=== PATIENT | female | born 1930 | race Caucasian/White ===

== ENCOUNTER 2017-08-28 10:53 | Inpatient (IN) | payer OTHER, MEDICARE ==
--- NOTE | 2017-08-28 11:02 | EDPHY ---
H & P Time Seen by Provider: 08/28/17 11:02 HPI/ROS: CHIEF COMPLAINT: Generalized weakness HISTORY OF PRESENT ILLNESS: Patient was seen to last be normal at 8 but breakfast. She was found by her son with lying in her room undressed on her back, and arrives the Emergency Department 11:00 a.m. with generalized weakness. She complains only of pain in her left hip. She is very hard of hearing and only has her left hearing aid in which makes further history and review of systems difficult. She was unable to walk or stand per her son. She is able to move all 4 extremities. She denies neck or back pain or headache. REVIEW OF SYSTEMS: Eye: no change in vision ENT: no sore throat Cardiac: No chest pain, unknown if event today was syncope. Pulmonary: no cough or SOB Abdomen: no vomiting, diarrhea, abdominal pain Musculoskeletal: no back pain or neck pain Skin: no rash Neuro: no headache Constitutional: no fever : no urinary symptoms A comprehensive 10 point review of systems is otherwise negative aside from elements mentioned in the history of present illness. PAST MEDICAL HISTORY: Hypothyroid Social history: No alcohol or tobacco, son present with her. General Appearance: Alert and conversant, cooperative. Eyes: No scleral icterus. ENT, Mouth: Normal mucous membranes. Respiratory: Normal respiratory effort, breath sounds equal, lungs are clear to auscultation. Cardiovascular: Regular rate and rhythm. Gastrointestinal: Abdomen is soft and non tender. Neurological: Alert, follows commands. Very hard of hearing. She will answer questions and when she does, her speech is fluent. Face symmetric, normal movement and sensation in all extremities. Skin: Warm and dry, no rashes. Musculoskeletal: No spinal tenderness. Left hip tenderness to rotation and axial loading. Psychiatric: Not agitated. Emergency Department course/MDM: Head CT, left hip x-ray, labs and EKG. Spine cleared clinically. Patient does not have focal findings to suggest that stroke is likely. 1200: X-ray personally interpreted as displaced femoral neck fracture on the left, discussed with the son. Plan for admission and orthopedic consultation. Constitutional: Initial Vital Signs Temperature (C) 36.3 C 08/28/17 11:02 Heart Rate 67 08/28/17 11:02 Respiratory Rate 18 08/28/17 11:02 Blood Pressure 146/101 H 08/28/17 11:02 O2 Sat (%) 95 08/28/17 11:02 O2 Delivery Mode Room Air Allergies/Adverse Reactions: No Known Allergies Allergy (Unverified 08/28/17 11:02) Home Medications: Medication Instructions Recorded Herbals/Supplements -Info Only 1 ea PO DAILY 08/28/17 Levothyroxine [Synthroid 50 mcg 50 mcg PO DAILY06 08/28/17 (*)] Medical Decision Making - Diagnostics EKG Interpretation: 12-lead EKG interpreted by me; official reading is in trace master. My interpretation is sinus rhythm rate 71 with APC and left anterior fascicular block. Imaging Results: Imaging Impressions Chest X-Ray 08/28/17 11:02 Impression: Mild CHF with interstitial pulmonary edema. Head CT 08/28/17 11:02 Impression: 1. Moderate atrophy. 2. No acute hemorrhage, hydrocephalus, or mass effect. 3. Cerebrovascular atherosclerosis. 4. No definite acute infarct. 5. Moderate microvascular ischemic gliosis. 6. Old bilateral basal ganglia lacunar infarcts. 7.No epidural or subdural hematoma. Findings and recommendations discussed with Emergency Department physician, ANNETTE ANROLD at 1145 hour, 08/28/2017. Final report concurs with initial preliminary interpretation. Hip X-Ray 08/28/17 11:02 Impression: Displaced left femoral neck fracture as above. Underlying degenerative change in both hips. Knee X-Ray 08/28/17 11:56 Impression: Negative. No acute fracture or effusion. Differential Diagnosis: Differential for weakness considered including but not limited to hip fracture or extremity fracture, spinal cord problem, metabolic, stroke. Consult/Admit Bed Type: [place] [address], [facility] [facility] [place] [facility] - Data Points Laboratory Results: Laboratory Results 08/28/17 11:00 08/28/17 11:00 08/28/17 08/28/17 11:00 11:00 WBC 5.21 10^3/uL 10^3/uL (3.80-9.50) RBC 4.11 10^6/uL L 10^6/uL (4.18-5.33) Hgb 13.5 g/dL g/dL (12.6-16.3) Hct 39.1 % % (38.0-47.0) MCV 95.1 fL fL (81.5-99.8) MCH 32.8 pg pg (27.9-34.1) MCHC 34.5 g/dL g/dL (32.4-36.7) RDW 14.0 % % (11.5-15.2) Plt Count 200 10^3/uL 10^3/uL (150-400) MPV 9.8 fL fL (8.7-11.7) Neut % (Auto) 75.9 % H % (39.3-74.2) Lymph % (Auto) 11.3 % L % (15.0-45.0) [place] % (Auto) 10.6 % % (4.5-13.0) Eos % (Auto) 0.8 % % (0.6-7.6) Baso % (Auto) 0.6 % % (0.3-1.7) Nucleat RBC Rel Count 0.0 % % (0.0-0.2) Absolute Neuts (auto) 3.96 10^3/uL 10^3/uL (1.70-6.50) Absolute Lymphs (auto) 0.59 10^3/uL L 10^3/uL (1.00-3.00) Absolute Monos (auto) 0.55 10^3/uL 10^3/uL (0.30-0.80) Absolute Eos (auto) 0.04 10^3/uL 10^3/uL (0.03-0.40) Absolute Basos (auto) 0.03 10^3/uL 10^3/uL (0.02-0.10) Absolute Nucleated RBC 0.00 10^3/uL 10^3/uL (0-0.01) Immature Gran % 0.8 % % (0.0-1.1) Immature Gran # 0.04 10^3/uL 10^3/uL (0.00-0.10) Sodium 141 mEq/L mEq/L (134-144) Potassium 4.2 mEq/L mEq/L (3.5-5.2) Chloride 101 mEq/L mEq/L (97-110) Carbon Dioxide 31 mEq/l mEq/l (22-31) Anion Gap 9 mEq/L mEq/L (8-16) BUN 16 mg/dL mg/dL (7-23) Creatinine 0.7 mg/dL mg/dL (0.6-1.0) Estimated GFR > 60 Glucose 117 mg/dL H mg/dL (70-100) Calcium 9.6 mg/dL mg/dL (8.5-10.4) Troponin I 0.022 ng/mL ng/mL (0.000-0.034) Medications Given: Morphine Sulfate (Morphine) 1 - 2 mg IVP Q1HR PRN PRN Reason: Pain, Severe Unable to Take PO Stop: 09/07/17 13:00 Last Admin: 08/28/17 13:35 Dose: 2 mg Departure - Departure Disposition: [facility] Inpatient Acute Clinical Impression: Displaced fracture of left femoral neck Condition: Good
[2017-08-28 11:07] LABS: PLATELET COUNT 200 10^3/uL (150-400)
--- NOTE | 2017-08-28 12:06 | CPEKG ---
Heart Rate: 71 RR Interval: 845 P-R Interval: 156 QRSD Interval: 86 QT Interval: 412 QTC Interval: 448 P [place]: 78 QRS [place]: -54 T Wave [place]: 43 EKG Severity - ABNORMAL ECG - EKG Impression: SINUS RHYTHM EKG Impression: ATRIAL PREMATURE COMPLEX EKG Impression: LEFT ANTERIOR FASCICULAR BLOCK Electronically Signed By: Han Musa 28-Aug-2017 14:24:48
--- NOTE | 2017-08-28 12:06 | CPEKG ---
Heart Rate: 71 RR Interval: 845 P-R Interval: 156 QRSD Interval: 86 QT Interval: 412 QTC Interval: 448 P [place]: 78 QRS [place]: -54 T Wave [place]: 43 EKG Severity - ABNORMAL ECG - EKG Impression: SINUS RHYTHM EKG Impression: ATRIAL PREMATURE COMPLEX EKG Impression: LEFT ANTERIOR FASCICULAR BLOCK Electronically Signed By: Han Musa 28-Aug-2017 14:24:48
[2017-08-28] MEDS ORDERED: ONDANSETRON 4 MG/2 ML VIAL IVP PRN ×2 (13:01→19:16)
[2017-08-28] MEDS ORDERED: ONDANSETRON DISINTEGRATING 4 MG TAB PO PRN (13:01)
[2017-08-28] MEDS ORDERED: FUROSEMIDE 20 MG/2 ML VIAL IVP ONE (15:28)
--- NOTE | 2017-08-28 16:26 | GHP ---
[f rep st] HISTORY AND PHYSICAL DATE OF ADMISSION: 08/28/2017 CHIEF COMPLAINT: Fall. HISTORY OF PRESENT ILLNESS: The patient is an 86-year-old female, who recently moved to [facility] approximately a week ago. According to the patient's son, she was seen at breakfast this morning at 8 a.m. He came to visit her sometime around 11 and found her lying on the floor in her assisted living facility half undressed. She states that she fell; however, she was unable to provide me with significant information other than that. She denies any specific head, neck, or back pain. She denies any chest pain. She denies any shortness of breath. It is felt that she likely got up to use the bathroom and was unable to find her way back in her new environment. The patient's son is providing most of the history as the patient is demented and unable to provide me with further details. REVIEW OF SYSTEMS: A comprehensive 10-point review of systems was done to the best of my ability other than noted in the HPI. PAST MEDICAL HISTORY: Noted for hypothyroidism. SOCIAL HISTORY: The patient does not use any tobacco or alcohol. She recently moved from being independent into assisted living at [facility] approximately a week and a half ago. Her son is present at the bedside. PAST SURGICAL HISTORY: None. PHYSICAL EXAM: GENERAL: The patient is alert, uncomfortable, mild pain. VITAL SIGNS: Afebrile at 36.3, pulse 69, respiratory rate 16. Blood pressure is 163/ 86. She is saturating 95% on room air. HEENT: Normocephalic, atraumatic. Mucosal membranes are moist. Pupils equal, round, reactive to light. RESPIRATORY: Lungs are clear to auscultation bilaterally. No rhonchi or wheezes noted. CARDIOVASCULAR: Regular rate and rhythm. GASTROINTESTINAL/ ABDOMEN: Bowel sounds are positive. Soft and nontender. There is no guarding or rigidity noted. NEUROLOGIC: The patient is alert. She follows commands. She is very hard of hearing. She is focally intact. SKIN: Warm and dry without rashes or lesions identified. EXTREMITIES: Without clubbing or cyanosis. ALLERGIES: None. HOME MEDICATIONS: Synthroid 50 mcg daily. LABORATORY EVALUATION: CBC and metabolic panel are essentially within normal limits. RADIOLOGICAL STUDIES: 1. Chest x-ray notes some mild congestive heart failure with interstitial pulmonary edema. 2. CT of the head notes moderate atrophy with no acute infarct identified. 3. Hip x-ray: Displaced left femoral neck fracture. Knee x-ray is benign for acute process. 4. EKG personally reviewed. Sinus rhythm. ASSESSMENT: The patient is an 86-year-old female, brought to the emergency room after suffering a fall. She was evaluated and diagnosed with: 1. Left femoral neck fracture. During this hospitalization she has received a consultation from Dr. Henderson. The plan is to take the patient to the operating room. I have reviewed this plan with the patient's son who is her MD power of counter intelligence technician. He is in agreement with this plan. He understands that his mother is uncomfortable and that she may not tolerate the surgery well, but he has opted to go forward. He understands that she is at risk given her age and her dementia for surgical intervention. However, he wishes to proceed no further. Preop evaluation is warranted at this time. 2. Dementia. The patient's dementia had significantly progressed in the last 2 weeks since being transitioned from her normal living environment. We will await her recovery after her surgical intervention. 3. History of hypothyroidism. Her Synthroid has been continued. 4. Questionable congestive heart failure. Her chest x-ray notes some interstitial pulmonary edema. I will order a small dose of Lasix at this time with further intervention evaluation to be done in the postoperative setting. The patient will be admitted to inpatient status as she requires surgical intervention and most likely will require intermediate rehabilitation after her intervention. 5. Patient to be a DNR after surgery. /[id number]/MODL MTDD
[2017-08-28] MEDS ORDERED: BUPIVACAINE 0.5% 30 ML SDV ONE (16:27)
[2017-08-28] MEDS ORDERED: LR 1,000 ML IV ONE (16:50)
--- NOTE | 2017-08-28 17:03 | PDANEPAE ---
ANE History of Present Illness navarro arth hip ANE Past Medical History - Cardiovascular History Hx Hypertension: No Hx Arrhythmias: No Hx Chest Pain: No Hx Coronary Artery / Peripheral Vascular Disease: No Hx CHF / Valvular Disease: No Hx Palpitations: No - Pulmonary History Hx COPD: No Hx Asthma/Reactive Airway Disease: No Hx Recent Upper Respiratory Infection: No Hx Oxygen in Use at Home: No Hx Sleep Apnea: No Sleep Apnea Screening Result - Last Documented: Positive - Endocrine History Hx Diabetes: No Hypothyroid: Yes - Renal History Hx Renal Disorders: No - Liver History Hx Hepatic Disorders: No - Neurological & Psychiatric Hx Neurological / Psychiatric History Comment: dementia - Surgical History Prior Surgeries: none prior ANE Review of Systems Review of Systems: - Exercise capacity Exercise capacity: unable to assess METS (RN): 2 METS ANE Patient History - Allergies Allergies/Adverse Reactions: No Known Allergies Allergy (Unverified 08/28/17 11:02) - Home Medications Home Medications: Herbals/Supplements -Info Only 1 ea PO DAILY 08/28/17 [Last Taken Unknown] Levothyroxine [Synthroid 50 mcg (*)] 50 mcg PO DAILY06 08/28/17 [Last Taken ] - NPO status NPO Since - Liquids (Date): 08/28/17 NPO Since - Liquids (Time): 09:00 NPO Since - Solids (Date): 08/27/17 NPO Since - Solids (Time): 18:00 - Anes Hx Hx Anesthesia Complications (with details): none prior - Smoking Hx Smoking Status: Never smoked ANE Labs/Vital Signs - Labs Result Diagrams: 08/28/17 11:00 08/28/17 11:00 - Vital Signs Blood Pressure: 163/86 Heart Rate: 69 Respiratory Rate: 16 O2 Sat (%): 97 Height: 167.64 cm Weight: 46.72 kg ANE Physical Exam - Airway Mallampati Score: Class 2 Mouth exam: normal dental/mouth exam, dentures - Pulmonary Pulmonary: no respiratory distress - Cardiovascular Cardiovascular: regular rate and rhythym - ASA Status ASA Status: II ANE Anesthesia Plan Anesthesia Plan: general endotracheal anesthesia
[2017-08-28] MEDS ORDERED: ceFAZolin 2 GM/SWFI 2 GM/20 ML SYR IVP ONE (17:04)
--- NOTE | 2017-08-28 17:04 | PDHPUP ---
History & Physical Update H&P update statement: This history and physical update is based on an assessment of the patient which was completed after admission or registration (within 24 hours), but prior to the surgery/procedure.
[2017-08-28] MEDS ORDERED: LIDOCAINE 2% 5 ML SDV ONE (17:06)
[2017-08-28] MEDS ORDERED: SUCCINYLCHOLINE CHLORIDE*ANESTHESIA ONLY*200 MG/10 ML SYR IVP ONE (17:06)
[2017-08-28] MEDS ORDERED: ROCURONIUM 50 MG/5 ML VIAL ONE (17:06)
[2017-08-28] MEDS ORDERED: fentaNYL 100 MCG/2 ML INJ ONE ×2 (17:07→19:26)
[2017-08-28] MEDS ORDERED: PROPOFOL 200 MG/20 ML VIAL ONE (17:07)
--- NOTE | 2017-08-28 17:23 | PDMN ---
Medical Necessity Medical necessity: Pt meets IP criteria per CONDUCTOR/BRAKEMAN; est los >2 mn for eval/tx of L femoral neck fx, surgery pending, questionable CHF; hx of dementia; per H&P
--- NOTE | 2017-08-28 17:23 | PDMN ---
Medical Necessity Medical necessity: Pt meets IP criteria per LAND CLEARER; est los >2 mn for eval/tx of L femoral neck fx, surgery pending, questionable CHF; hx of dementia; per H&P
--- NOTE | 2017-08-28 17:23 | PDMN ---
Medical Necessity Medical necessity: Pt meets IP criteria per HISTOLOGY ASSISTANT; est los >2 mn for eval/tx of L femoral neck fx, surgery pending, questionable CHF; hx of dementia; per H&P
[2017-08-28] MEDS ORDERED: SUGAMMADEX SODIUM 200 MG/2 ML VIAL IVP ONE (18:48)
--- NOTE | 2017-08-28 19:05 | POSTOPPROG ---
Post Op Note Date of Operation: 08/28/17 Surgeon: lAex Henderson Neuropsychiatric Aide: Carrie Anesthesiologist: Jose Anesthesia: GET(General Endotracheal) Pre-op Diagnosis: L hip fx Post-op Diagnosis: same Indication: above Procedure: L hip navarro arthroplasty Inf/Abcess present in the surg proc area at time of surgery?: No EBL: 50-100
--- NOTE | 2017-08-28 19:05 | POSTOPPROG ---
Post Op Note Date of Operation: 08/28/17 Surgeon: Alex Henderson Celebrity Chef Entrepreneur Media Personality: Carrie Anesthesiologist: Jose Anesthesia: GET(General Endotracheal) Pre-op Diagnosis: L hip fx Post-op Diagnosis: same Indication: above Procedure: L hip navarro arthroplasty Inf/Abcess present in the surg proc area at time of surgery?: No EBL: 50-100
[2017-08-28] MEDS ORDERED: NALOXONE HCL 0.4 MG/ML INJ IVP PRN (19:16)
[2017-08-28] MEDS ORDERED: ALBUTEROL 3 ML DEYVIAL IH PRN (19:16)
--- NOTE | 2017-08-28 19:18 | POSTANESTH ---
Post Anesthetic Evaluation Cardiovascular Status: Normal, Stable Respiratory Status: Normal, Stable Level of Consciousness/Mental Status: Other, See Comment (seems at baseline) Pain Control: Adequate, Prn Tx Ordered Nausea/Vomiting Control: Adequate, Prn Tx Ordered Complications Possibly Related to Anesthesia: None Noted
[2017-08-28] MEDS ORDERED: ONDANSETRON 4 MG/2 ML VIAL ONE (19:25)
[2017-08-28] MEDS: fentaNYL 100 MCG/2 ML INJ IVP PRN ×2 (19:27→19:36)
[2017-08-28] MEDS: OXYCODONE/APAP 5/325 TAB PO PRN (20:31)
[2017-08-29] MEDS: OXYCODONE/APAP 5/325 TAB PO PRN ×3 (01:16→13:46)
--- NOTE | 2017-08-29 03:22 | GCON ---
[f rep st] CONSULTATION CHIEF COMPLAINT: Left hip fracture. HISTORY OF PRESENT ILLNESS: An 86-year-old female who lives in an assisted facility. She was having breakfast at 8 a.m., and then was found lying on floor at 11 a.m. by her son. She was unable to move, taken to the emergency room, diagnosed with a left hip fracture. She had no other complaints of pain or difficulty in the emergency room. REVIEW OF SYSTEMS: Comprehensive review of systems was performed by the emergency room staff, and I verified this with her son; unable to obtain this from the patient. PAST MEDICAL HISTORY: Hypothyroidism. SOCIAL HISTORY: She does not use tobacco or alcohol. She lives in assisted care. SURGICAL HISTORY: None. Meds: see list Allergies: see list PHYSICAL EXAM: GENERAL: She is alert, she does appear uncomfortable. She does seem somewhat confused, and she is hard of hearing. VITAL SIGNS: Stable. HEENT: Head is normocephalic and atraumatic. Her mucous membranes are moist. Her pupils round and reactive. RESPIRATORY: Lungs are clear. She has good chest rise. CARDIOVASCULAR: She has regular rate and rhythm. ABDOMEN: Soft. EXTREMITIES: Her upper extremities, she moves well and there are no abnormalities. There is tenderness. The left lower extremity is rotated and shortened. The right lower extremity shows no abnormality. NEUROLOGIC: She does appear neurovascularly intact. RADIOGRAPHS: X-ray shows a left femoral neck fracture which is displaced. ASSESSMENT: Left femoral neck fracture. PLAN: I discussed with her son over the phone, obtained verbal consent for a left hip hemiarthroplasty. We discussed the risks, including malunion, loosening, sepsis, blood clot, heart attack, stroke, . Discussed the recovery period. We discussed alternatives, as well. He is her durable medical power of deputy commonwealth's attorney and did provide consent to do this. We will take her to the OR for the left hip hemiarthroplasty. She has been admitted to the hospitalist service. /[id number]/MODL MTDD
--- NOTE | 2017-08-29 05:08 | GOP ---
[f rep st] OPERATIVE REPORT DATE OF OPERATION: 08/28/2017 SURGEON: Alex Henderson MD ORIENTATION & MOBILITY SPECIALIST: Ady Butler SA. ANESTHESIA: General. PREOPERATIVE DIAGNOSIS: Left hip fracture. POSTOPERATIVE DIAGNOSIS: Left hip fracture. PROCEDURE PERFORMED: Left hip hemiarthroplasty. FINDINGS: SPECIMENS: None. ESTIMATED BLOOD LOSS: 100 mL. INDICATIONS: This is an 86-year-old female who fell and was found to have a hip fracture, was taken to the emergency room, admitted to the hospital service and I was consulted. I counseled her son on the risks and benefits of operative intervention, including nerve injury, leg-length discrepancy, fra cture dislocation, need for further surgery, failure, heart attack, stroke, blood clots, and . They would like to proceed. Informed consent obtained. All questions answered. She was marked preo peratively. DESCRIPTION OF PROCEDURE: She was taken to the operative suite, put to sleep. Ward catheter was in serted. She was positioned laterally on a PEG board. Bony prominences were padded. She was sterilel y prepped and draped in normal fashion. Time-out was performed verifying the site, side, location an d there was agreement with the team. I performed an anterior lateral approach to the hip. I incised the skin and the fascia. I found the abductor nicely. This was taken down to about a quarter of th e abductor and later repaired this. I T'd the capsule to open this up. The femoral neck was obviousl y completely dislocated. I made the femoral neck cut off the guide. I removed this bone and then rem elias the head with a corkscrew. I sized this to a 45. I then lateralized the entry point. I then u sed broaches to prepare the canal. I felt like a 3 fit well and torqued stable. Did trials of this that were stable. I selected the final stem and impacted this into place. I again trialed this and felt the +8 was more stable. I then selected the final components, washed this out and put these delfina l components into place. She was quite stable. It did not dislocate on the table. I felt I had rest ored the leg lengths. Then repaired the capsule with #1 Vicryl. I repaired the adductor with #5 Ethi moulton. I then repaired the fascia with #1 Vicryl, 2-0 Vicryl, and 3-0 Quill were used for the wound w ith Dermabond. She was placed in sterile dressing and taken to PACU in stable condition. IMPLANTS: Daniella Accolade II, #3 stem, a 26 inner ball, +8 offset and 46 outer ball. COMPLICATIONS: None. DRAINS: None. CONDITION: Stable. /[id number]/MODL
[2017-08-29] MEDS: LEVOTHYROXINE 50 MCG TAB PO SCH (05:09)
[2017-08-29 05:45] LABS: PLATELET COUNT 158 10^3/uL (150-400)
[2017-08-29] MEDS ORDERED: Herbals/Supplements -Info Only PO SCH (09:00)
--- NOTE | 2017-08-29 10:05 | ASMTCMCOM ---
CM Note CM Note Notes: Patient is POD #1 L hip navarro arthroplasty after she fell at [facility]. I spoke to patient's son Hank who provided me with background information: patient recently transitioned from [facility] to [place] one week ago. Hank thought "assisted" living meant more care/supervision, but patient was unsupervised when she fell. He realizes that she will now probably need rehab before returning to [facility], and he understands that she may never be able to return to [facility] given their level of care. He has a meeting with them tomorrow. PT/OT deja pending today. Hank will come by the hospital to speak with CM after his meeting with Elsie. He mentioned [facility] as a potential discharge plan and also mentioned that [facility] [place] was NOT an option. Current discharge plan: TBD pending Pt/OT deja. Likely SNF rehab. Date Signed: 08/29/2017 10:04 AM Electronically Signed By:Yolanda Becerril RN
--- NOTE | 2017-08-29 10:05 | ASMTCMCOM ---
CM Note CM Note Notes: Patient is POD #1 L hip navarro arthroplasty after she fell at [facility]. I spoke to patient's son Hank who provided me with background information: patient recently transitioned from [facility] [place] one week ago. Hank thought "assisted" living meant more care/supervision, but patient was unsupervised when she fell. He realizes that she will now probably need rehab before returning to [facility], and he understands that she may never be able to return to [facility] given their level of care. He has a meeting with them tomorrow. PT/OT deja pending today. Hank will come by the hospital to speak with CM after his meeting with Elsie. He mentioned [facility] as a potential discharge plan and also mentioned that [facility] was NOT an option. Current discharge plan: TBD pending Pt/OT deja. Likely SNF rehab. Date Signed: 08/29/2017 10:04 AM Electronically Signed By:Yolanda Becerril RN
--- NOTE | 2017-08-29 10:05 | ASMTCMCOM ---
CM Note CM Note Notes: Patient is POD #1 L hip navarro arthroplasty after she fell at [facility]. I spoke to patient's son Hank who provided me with background information: patient recently transitioned from [facility] to [place] one week ago. Hank thought "assisted" living meant more care/supervision, but patient was unsupervised when she fell. He realizes that she will now probably need rehab before returning to [facility], and he understands that she may never be able to return to [facility] given their level of care. He has a meeting with them tomorrow. PT/OT deja pending today. Hank will come by the hospital to speak with CM after his meeting with Elsie. He mentioned [facility] as a potential discharge plan and also mentioned that [place] was NOT an option. Current discharge plan: TBD pending Pt/OT deja. Likely SNF rehab. Date Signed: 08/29/2017 10:04 AM Electronically Signed By:Yolanda Becerril RN
[2017-08-29] MEDS: ENOXAPARIN 40 MG/0.4 ML SYR SC SCH (10:07)
[2017-08-29] MEDS ORDERED: PNEUMOC 13-VAL CONJ-DIP CRM/PF 0.5 ML SYR IM ONE ×2 (11:38→15:30)
--- NOTE | 2017-08-29 14:41 | SOAPPROG ---
CAMACHO Progress Note Assessment/Plan: Assessment: Left hip fx Plan: Left hip hemiarthroplast 08/27 wbat ant hip precautions PT/OT lovenox 40 qday for 10 days then ASA 325mg po qday for 1 month will need placement 08/29/17 14:39 Subjective: non verbal Objective: Vital Signs Temp Pulse Resp BP Pulse Ox 36.7 C 65 16 97/48 L 93 08/29/17 12:30 08/29/17 12:30 08/29/17 12:30 08/29/17 12:30 08/29/17 12:30 Laboratory Results 08/29/17 05:08 08/29/17 05:08 08/28/17 08/29/17 08/30/17 05:59 05:59 05:59 Intake Total 8190 Output Total 1125 50 Balance 815 -50 dressing dry ICD10 Worksheet Patient Problems: Problems Problem Status Onset Displaced fracture of left femoral neck Acute chronic disease mgmt/transitional care Acute
--- NOTE | 2017-08-29 14:41 | SOAPPROG ---
CAMACHO Progress Note Assessment/Plan: Assessment: Left hip fx Plan: Left hip hemiarthroplast 08/27 wbat ant hip precautions PT/OT lovenox 40 qday for 10 days then ASA 325mg po qday for 1 month will need placement 08/29/17 14:39 Subjective: non verbal Objective: Vital Signs Temp Pulse Resp BP Pulse Ox 36.7 C 65 16 97/48 L 93 08/29/17 12:30 08/29/17 12:30 08/29/17 12:30 08/29/17 12:30 08/29/17 12:30 Laboratory Results 08/29/17 05:08 08/29/17 05:08 08/28/17 08/29/17 08/30/17 05:59 05:59 05:59 Intake Total 0130 Output Total 1125 50 Balance 815 -50 dressing dry ICD10 Worksheet Patient Problems: Problems Problem Status Onset Displaced fracture of left femoral neck Acute chronic disease mgmt/transitional care Acute
--- NOTE | 2017-08-29 14:41 | SOAPPROG ---
CAMACHO Progress Note Assessment/Plan: Assessment: Left hip fx Plan: Left hip hemiarthroplast 08/27 wbat ant hip precautions PT/OT lovenox 40 qday for 10 days then ASA 325mg po qday for 1 month will need placement 08/29/17 14:39 Subjective: non verbal Objective: Vital Signs Temp Pulse Resp BP Pulse Ox 36.7 C 65 16 97/48 L 93 08/29/17 12:30 08/29/17 12:30 08/29/17 12:30 08/29/17 12:30 08/29/17 12:30 Laboratory Results 08/29/17 05:08 08/29/17 05:08 08/28/17 08/29/17 08/30/17 05:59 05:59 05:59 Intake Total 2670 Output Total 1125 50 Balance 815 -50 dressing dry ICD10 Worksheet Patient Problems: Problems Problem Status Onset Displaced fracture of left femoral neck Acute chronic disease mgmt/transitional care Acute
[2017-08-29] MEDS ORDERED: LACTULOSE 20 GM/30 ML UDCUP PO PRN (15:01)
[2017-08-29] MEDS ORDERED: POLYETHYLENE GLYCOL 3350 17 GM PKT PO PRN (15:01)
[2017-08-29] MEDS ORDERED: BISACODYL 10 MG SUPP PR PRN (15:01)
[2017-08-29] MEDS ORDERED: MAGNESIUM HYDROXIDE 30 ML UDCUP PO PRN (15:01)
[2017-08-29] MEDS ORDERED: oxyCODONE IR 5 MG TAB PO PRN (17:05)
--- NOTE | 2017-08-29 17:07 | HOSPPROG ---
Hospitalist Progress Note Assessment/Plan: # acute left femoral neck fracture-status post hip replacement POD#1 xray (personally reviewed adn interpreted) shows good post op alignment hgb 11 post-op with no bleeding - patient with some lethargy on current meds - reduce oxycodone to 2.5mg - cont PT/OT # Suspected pulmonary congestion on admit - received single dose lasix pre-op- oxygen saturations 96% on 2L - not repeated today 2/2 lethargy - follow sats may need to repeat if not improved while up and active # hypothyroidism - cont synthroid # dementia - stable # proph - per ortho # diet - [employer] eval for some noted difficulty swallowing # dispo - > 2MN as requiring post op recovery and placement I have discussed the case with RN - working on titrated pain control and placment Subjective: pain Objective: Vital Signs Temp Pulse Resp BP Pulse Ox 36.8 C 78 16 112/54 L 96 08/29/17 16:02 08/29/17 16:02 08/29/17 16:02 08/29/17 16:02 08/29/17 16:02 Laboratory Results 08/29/17 05:08 08/29/17 05:08 08/28/17 08/29/17 08/30/17 05:59 05:59 05:59 Intake Total 1940 900 Output Total 1125 50 Balance 815 850 - Physical Exam Constitutional: chronically ill appearing Eyes: anicteric sclera Ears, Nose, Mouth, Throat: dry mucous membranes Cardiovascular: regular rate and rhythym Respiratory: no respiratory distress Gastrointestinal: normoactive bowel sounds Genitourinary: No hodges in urethra Skin: warm Musculoskeletal: generalized weakness Neurologic: other (somnolent) Psychiatric: No agitated Lymph, Heme, Immunologic: no cervical LAD ICD10 Worksheet Patient Problems: Problems Problem Status Onset Displaced fracture of left femoral neck Acute chronic disease mgmt/transitional care Acute
[2017-08-29] MEDS: ACETAMINOPHEN 325 MG TAB PO PRN (17:42)
[2017-08-29] MEDS: NS 1,000 ML IV SCH (17:43)
[2017-08-29] MEDS: SENNOSIDES/DOCUSATE SODIUM TAB PO SCH (21:07)
[2017-08-30] MEDS: NS 1,000 ML IV SCH ×2 (03:25→16:00)
[2017-08-30] MEDS: ACETAMINOPHEN 325 MG TAB PO PRN (05:22)
[2017-08-30] MEDS: LEVOTHYROXINE 50 MCG TAB PO SCH (05:22)
[2017-08-30] MEDS: ENOXAPARIN 40 MG/0.4 ML SYR SC SCH (09:05)
[2017-08-30] MEDS: SENNOSIDES/DOCUSATE SODIUM TAB PO SCH ×2 (09:06→21:48)
--- NOTE | 2017-08-30 14:16 | HOSPPROG ---
Hospitalist Progress Note Assessment/Plan: Patient is an 86-year-old female who lives at assisted living and sustained a fall. It was noted that she had an acute left femoral neck fracture. She went to OR yesterday. Today is my 1st encounter with the patient. Chart reviewed. # acute left femoral neck fracture-status post hip replacement POD#2 - patient with some lethargy on current meds - reduce oxycodone to 2.5mg - cont PT/OT #anemia -expected blood loss/ will follow #Hypotension -not symptomatic -will follow #Hypoxemia -suspect post op atelectasis -had received a dose of lasix on admit/ pre-op as on 2 liters/ now on 3-4 -will get a repeat chest xray/ check a bnp # hypothyroidism - cont Synthroid # dementia - stable # DVT proph -LMWH # diet - ST evaluated and placed on dysphagia diet # dispo - > 2MN as requiring post op recovery and placement #Plan: if bp improves, dc fluids/ recheck labs in a.m., get chest xray, check BNP Subjective: Rhea has no c/o pain/ wants help with her partial dentures/ Objective: Vital Signs Temp Pulse Resp BP Pulse Ox 37.0 C 74 14 97/52 L 97 08/30/17 07:38 08/30/17 07:38 08/30/17 07:38 08/30/17 07:38 08/30/17 07:38 Laboratory Results 08/30/17 05:22 08/29/17 05:08 08/29/17 08/30/17 08/31/17 05:59 05:59 05:59 Intake Total 1940 3850 Output Total 1125 450 Balance 815 3400 - Physical Exam Constitutional: chronically ill appearing, uncomfortable Eyes: PERRL Ears, Nose, Mouth, Throat: hard of hearing Cardiovascular: regular rate and rhythym Respiratory: no respiratory distress, bronchial breath sounds Skin: warm, No normal color (pale) Neurologic: other (alert and oriented only to herself) Psychiatric: interacting appropriately, not anxious ICD10 Worksheet Patient Problems: Problems Problem Status Onset Displaced fracture of left femoral neck Acute chronic disease mgmt/transitional care Acute
--- NOTE | 2017-08-30 15:11 | SOAPPROG ---
CAMACHO Progress Note Assessment/Plan: Assessment: Left hip fx Plan: Left hip hemiarthroplast 08/27 wbat ant hip precautions PT/OT lovenox 40 qday for 10 days then ASA 325mg po qday for 1 month will need placement 08/29/17 14:39 Subjective: alert but confused Objective: Vital Signs Temp Pulse Resp BP Pulse Ox 37.0 C 74 14 97/52 L 97 08/30/17 07:38 08/30/17 07:38 08/30/17 07:38 08/30/17 07:38 08/30/17 07:38 Laboratory Results 08/30/17 05:22 08/29/17 05:08 08/29/17 08/30/17 08/31/17 05:59 05:59 05:59 Intake Total 1940 3850 Output Total 1125 450 Balance 815 3400 movement of hip does not cause pain, dressing dry ICD10 Worksheet Patient Problems: Problems Problem Status Onset Displaced fracture of left femoral neck Acute chronic disease mgmt/transitional care Acute
--- NOTE | 2017-08-30 15:36 | ASMTCMCOM ---
CM Note CM Note Notes: CM met w/ son, Hank for dispo planning. He is MDPOA. PT/OT are recommending SNF. A list of SNF facilities provided to Hank. Hank would like a referrals to be made to [facility], [facility], [facility], [facility] and [facility]. Hank would prefer [facility] and [facility] due to the proximity to his house. All the SNFs have accepted pt. [facility] pending onsite to assess pt. CM notified Hank. Hank will be in tomorrow morning to let CM know which facility he wants to go w/. Hank has a meeting w/ [facility] this AM. Non triggering PASRR completed. CM to follow. Malin #: [phone] Date Signed: 08/30/2017 03:36 PM Electronically Signed By:PO Baer
--- NOTE | 2017-08-30 15:36 | ASMTCMCOM ---
CM Note CM Note Notes: CM met w/ son, Hank for dispo planning. He is MDPOA. PT/OT are recommending SNF. A list of SNF facilities provided to Hank. Hank would like a referrals to be made to [facility], [facility], [facility], [facility] and [facility]. Hank would prefer [facility] and [facility] due to the proximity to his house. All the SNFs have accepted pt. [facility] pending onsite to assess pt. CM notified Hank. Hank will be in tomorrow morning to let CM know which facility he wants to go w/. Hank has a meeting w/ [facility] this AM. Non triggering PASRR completed. CM to follow. Malin #: [phone] Date Signed: 08/30/2017 03:36 PM Electronically Signed By:PO Baer
--- NOTE | 2017-08-30 15:36 | ASMTCMCOM ---
CM Note CM Note Notes: CM met w/ son, Hank for dispo planning. He is MDPOA. PT/OT are recommending SNF. A list of SNF facilities provided to Hank. Hank would like a referrals to be made to [facility], [facility], [facility], [facility] and [facility]. Hank would prefer [facility] and [facility] due to the proximity to his house. All the SNFs have accepted pt. [facility] pending onsite to assess pt. CM notified Hank. Hank will be in tomorrow morning to let CM know which facility he wants to go w/. Hank has a meeting w/ [facility] this AM. Non triggering PASRR completed. CM to follow. Malin #: [phone] Date Signed: 08/30/2017 03:36 PM Electronically Signed By:PO Baer
[2017-08-30 15:41] VITALS: RESP 16
[2017-08-30] MEDS: ACETAMINOPHEN 500 MG TAB PO SCH (21:47)
[2017-08-31] MEDS: LEVOTHYROXINE 50 MCG TAB PO SCH (05:28)
[2017-08-31 06:33] LABS: PLATELET COUNT 156 10^3/uL (150-400)
[2017-08-31] MEDS: ENOXAPARIN 40 MG/0.4 ML SYR SC SCH (08:15)
[2017-08-31] MEDS: SENNOSIDES/DOCUSATE SODIUM TAB PO SCH (08:15)
[2017-08-31] MEDS: ACETAMINOPHEN 500 MG TAB PO SCH (08:15)
[2017-08-31 11:15] VITALS: BP 125/50; PULSE 80; TEMP 97.5; O2SAT 95
--- NOTE | 2017-08-31 11:31 | HOSPPROG ---
Hospitalist Progress Note Assessment/Plan: Patient is an 86-year-old female who lives at assisted living and sustained a fall. It was noted that she had an acute left femoral neck fracture. # acute left femoral neck fracture-status post hip replacement POD#3 - much more alert today - reduce oxycodone to 2.5mg - cont PT/OT #anemia -expected blood loss/ will follow #Hypotension -not symptomatic -will follow #Hypoxemia resolved chest xray shows probable new right sided small pleural effusion # hypothyroidism - cont Synthroid # dementia - stable # DVT proph -LMWH # diet - ST evaluated and placed on dysphagia diet # dispo - dc today Subjective: kelsy is smiling, happy, says she isn't having pain Objective: Vital Signs Temp Pulse Resp BP Pulse Ox 36.4 C 80 16 125/50 H 95 08/31/17 11:10 08/31/17 11:10 08/31/17 11:10 08/31/17 11:10 08/31/17 11:10 Laboratory Results 08/31/17 05:23 08/31/17 05:23 08/30/17 08/31/17 09/01/17 05:59 05:59 05:59 Intake Total 3850 950 325 Output Total 450 1 100 Balance 3400 949 225 - Physical Exam Constitutional: no apparent distress, chronically ill appearing, other (thin) Eyes: PERRL Ears, Nose, Mouth, Throat: hard of hearing Cardiovascular: regular rate and rhythym Respiratory: no respiratory distress, reduced air movement Gastrointestinal: normoactive bowel sounds Genitourinary: hodges in urethra Skin: warm, No normal color (pale) Musculoskeletal: generalized weakness Neurologic: other (alert and oriented to herself only) Psychiatric: interacting appropriately ICD10 Worksheet Patient Problems: Problems Problem Status Onset Displaced fracture of left femoral neck Acute chronic disease mgmt/transitional care Acute
--- NOTE | 2017-08-31 11:42 | PDIAF ---
- Diagnosis Diagnosis: left hip fx s/p left hemiathroplasty, dementia, very [place] Code Status: Do Not Resuscitate - Medication Management Discharge Medications: Medications to Continue on Transfer Herbals/Supplements -Info Only 1 ea PO DAILY 08/28/17 [Last Taken Unknown] Levothyroxine [Synthroid 50 mcg (*)] 50 mcg PO DAILY06 08/28/17 [Last Taken ] Enoxaparin [Lovenox 40 MG (*)] 40 mg SC DAILY #7 syr 08/29/17 [Last Taken Unknown] Acetaminophen [Tylenol ES 500 mg (*)] 1,000 mg PO TID tab 08/31/17 [Last Taken Unknown] Polyethylene Glycol 3350 [Miralax 17 gm (*)] 17 gm PO DAILY PRN pkt 08/31/17 [ Last Taken Unknown] Sennosides/Docusate Sodium [Senokot-S] 1 - 2 tab PO BID tab 08/31/17 [Last Taken Unknown] oxyCODONE IR [Oxycodone Ir (*)] 2.5 mg PO Q4HRS PRN tab 08/31/17 [Last Taken Unknown] Discharge Medications: Refer to the Discharge Home Medication list for PRN reason. - Orders Services needed: Physical Therapy, Occupational Therapy Diet Recommendation: no restrictions on diet Diet Texture: Dysphagia 1 - Pureed, [place] Thick Liquids, Meds Crushed in Puree Ward: Yes (strict I & O's, dc once stable) Activity/Weight Bearing Restrictions: wbat, ant hip precautions Additional: f/u with Dr Henderson in next two weeks. Continue Lovenox for 7 more days for dvt prophylaxis/ THEN ASPIRIN 325 MG DAILY X ONE MONTH. Needs encouragement to eat and drink. - Labs/Radiology BMP Date: 09/03/07 HCT/HGB Date: 09/03/17 (PRN IF LOW) - Follow Up Care Current Providers and Referrals: Patient,NotPresent [Unknown] - As per Instructions Alex Henderson MD [Medical Doctor] -
--- NOTE | 2017-08-31 13:43 | GDS ---
[f rep st] DISCHARGE SUMMARY DISCHARGE DIAGNOSES: 1. Acute left femoral neck fracture status post hip replacement. 2. Anemia. 3. Hyponatremia. 4. Hypoxemia. 5. Hypothyroidism. 6. Dementia. 7. Underweight with a BMI of 16. CONSULTATION: Alex Henderson M.D. HISTORY: Briefly, the patient is an 86-year-old woman who has significant dementia, who presented to the emergency room after sustaining a fall. She recently moved to [facility] approximately a week prior to her admission. She was seen at breakfast in the morning, and then her son came to visit around 11, found her lying on the floor in the assisted living facility , half undressed. She states she has never fell, but she is unable to provide the admitting physician with her history. It was noted that she had a left femoral neck fracture. She was seen and evaluated by Dr. Henderson, and on 2016, she had repair of her hip. HOSPITAL COURSE PER PROBLEM: 1. Acute left femoral neck fracture. She is status post hip replacement, postop day #3. She is doing quite well. Reduced her narcotics due to confusion. 2. Anemia, expected blood loss. Will have her hemoglobin and hematocrit followed in the outpatient setting. 3. Hypotension, resolved. 4. Hypoxemia, resolved. A chest x-ray was performed which showed a probable new right small pleural effusion. 5. Hypothyroidism, on Synthroid. 6. Dementia, quite advanced. CONDITION AT DISCHARGE: Stable. Blood pressure is 125/50, pulse is 80, respiratory rate is 16, O2 sats on room air 95%, temperature is 36.4 Celsius. MEDICATIONS AT DISCHARGE: Please see the EMR. DISCHARGE INSTRUCTIONS: 1. To follow up with Dr. Henderson in the outpatient setting. 2. To stay on Lovenox for the next 7 days, and then aspirin 325 mg daily x1 month. 3. To be on a dysphagia 1, pureed, nectar-thick liquids. 4. To remove her Ward once she has stable intake and output. Greater than 30 minutes discharging and coordinating care. /[id number]/MODL MTDD
--- NOTE | 2017-08-31 14:23 | ASDISCHSUM ---
Discharge Information Plan Status:SNF Medically Cleared to Leave: Discharge Date:08/31/2017 01:56 PM D/C Disposition:[facility] Facility ADT D/C Disposition:[facility] Facility Projected Discharge Date:08/31/2017 11:00 AM Transportation at D/C:ALS/BLS Discharge Delay Reason: Follow-Up Date:08/31/2017 11:00 AM Discharge Slot: Final Diagnosis: Placement Information Referral Type:*[facility]/SNF Referral ID:[id number] Provider Name:Louisa John [place] Address [address] Phone Number: Address 2: Fax Number: City:[place] Selection Factors: State:[place] Patient Contact Information Contact Name:FLORENTINO Relationship:Son Address:[address] Work Phone: City:[place] Alternate Phone: [facility] Code:[place] [address] Email: Financial Information Financial Class: Primary Plan Desc:MEDICARE INPATIENT Primary Plan Number:[id number] Secondary Plan Desc:AARP/MDR SUPPLEMENT Secondary Plan Number:[id number] Assessment Information [facility] CM Progress Note CM Note CM Note Notes: Patient is POD #1 L hip navarro arthroplasty after she fell at [facility]. I spoke to patient's son Hank who provided me with background information: patient recently transitioned from [facility] to [place] one week ago. Hank thought "assisted" living meant more care/supervision, but patient was unsupervised when she fell. He realizes that she will now probably need rehab before returning to [facility], and he understands that she may never be able to return to [facility] given their level of care. He has a meeting with them tomorrow. PT/OT deja pending today. Hank will come by the hospital to speak with CM after his meeting with [facility]. He mentioned [facility] as a potential discharge plan and also mentioned that [facility] was NOT an option. Current discharge plan: TBD pending Pt/OT deja. Likely SNF rehab. Date Signed: 08/29/2017 10:04 AM Electronically Signed By:Yolanda Becerril RN [facility] CM Progress Note CM Note CM Note Notes: CM met w/ sonHank for dispo planning. He is MDPOA. PT/OT are recommending SNF. A list of SNF facilities provided to Hank. Hank would like a referrals to be made to [facility], [facility], [facility], [facility], [facility] and [facility]. Hank would prefer [facility] and [facility] due to the proximity to his house. All the SNFs have accepted pt. [facility] pending onsite to assess pt. CM notified Hank. Hank will be in tomorrow morning to let CM know which facility he wants to go w/. Hank has a meeting w/ [facility] this AM. Non triggering PASRR completed. CM to follow. Kimo #: [phone] Date Signed: 08/30/2017 03:36 PM Electronically Signed By:PO Baer [facility] CM Progress Note CM Note CM Note Notes: Pt medically stable for d/c to [facility], son #1 choice. GALINDO Alarcon to call report. Orders sent in [employer]. Stretcher transport scheduled for 1330. Pt son updated about d/c. Date Signed: 08/31/2017 02:22 PM Electronically Signed By:MIRA Hennessy Intervention Information
--- NOTE | 2017-08-31 14:23 | ASDISCHSUM ---
Discharge Information Plan Status:SNF Medically Cleared to Leave: Discharge Date:08/31/2017 01:56 PM D/C Disposition:[facility] Facility ADT D/C Disposition:[facility] Facility Projected Discharge Date:08/31/2017 11:00 AM Transportation at D/C:ALS/BLS Discharge Delay Reason: Follow-Up Date:08/31/2017 11:00 AM Discharge Slot: Final Diagnosis: Placement Information Referral Type:*[facility]NF Referral ID:[id number] Provider Name:Louisa John [place] Address [address] Phone Number: Address 2: Fax Number: City:[place] Selection Factors: State:[place] Patient Contact Information Contact Name:FLORENTINO Relationship:Son Address:[address] Work Phone: City:[place] Alternate Phone: [facility] Code:[place] [address] Email: Financial Information Financial Class: Primary Plan Desc:MEDICARE INPATIENT Primary Plan Number:[id number] Secondary Plan Desc:AARP/MDR SUPPLEMENT Secondary Plan Number:[id number] Assessment Information [facility] CM Progress Note CM Note CM Note Notes: Patient is POD #1 L hip navarro arthroplasty after she fell at [facility]. I spoke to patient's son Hank who provided me with background information: patient recently transitioned from [facility] to [place] one week ago. Hank thought "assisted" living meant more care/supervision, but patient was unsupervised when she fell. He realizes that she will now probably need rehab before returning to [facility], and he understands that she may never be able to return to [facility] given their level of care. He has a meeting with them tomorrow. PT/OT deja pending today. Hank will come by the hospital to speak with CM after his meeting with [facility]. He mentioned [facility] as a potential discharge plan and also mentioned that [facility] was NOT an option. Current discharge plan: TBD pending Pt/OT deja. Likely SNF rehab. Date Signed: 08/29/2017 10:04 AM Electronically Signed By:Yolanda Becerril RN [facility] CM Progress Note CM Note CM Note Notes: CM met w/ sonHank for dispo planning. He is MDPOA. PT/OT are recommending SNF. A list of SNF facilities provided to Hank. Hank would like a referrals to be made to [facility], [facility], [facility], [facility] and [facility]. Hank would prefer [facility] and [facility] due to the proximity to his house. All the SNFs have accepted pt. [facility] pending onsite to assess pt. CM notified Hank. Hank will be in tomorrow morning to let CM know which facility he wants to go w/. Hank has a meeting w/ [facility] this AM. Non triggering PASRR completed. CM to follow. Kimo #: [phone] Date Signed: 08/30/2017 03:36 PM Electronically Signed By:PO Baer [facility] CM Progress Note CM Note CM Note Notes: Pt medically stable for d/c to [facility], son #1 choice. GALINDO Alarcon to call report. Orders sent in [employer]. Stretcher transport scheduled for 1330. Pt son updated about d/c. Date Signed: 08/31/2017 02:22 PM Electronically Signed By:MIRA Hennessy Intervention Information
--- NOTE | 2017-08-31 14:23 | ASDISCHSUM ---
Discharge Information Plan Status:SNF Medically Cleared to Leave: Discharge Date:08/31/2017 01:56 PM D/C Disposition:[facility] Facility ADT D/C Disposition:[facility] Facility Projected Discharge Date:08/31/2017 11:00 AM Transportation at D/C:ALS/BLS Discharge Delay Reason: Follow-Up Date:08/31/2017 11:00 AM Discharge Slot: Final Diagnosis: Placement Information Referral Type:*Correction/SNF Referral ID:[id number] Provider Name:Louisa John [place] Address [address] [facility] Phone Number: Address 2: Fax Number: City:[place] Selection Factors: State:[place] Patient Contact Information Contact Name:FLORENTINO Relationship:Son Address:[address] Work Phone: City:[place] Alternate Phone: [facility] Code:[place] [address] Email: Financial Information Financial Class: Primary Plan Desc:MEDICARE INPATIENT Primary Plan Number:[id number] Secondary Plan Desc:AARP/MDR SUPPLEMENT Secondary Plan Number:[id number] Assessment Information [facility] CM Progress Note CM Note CM Note Notes: Patient is POD #1 L hip navarro arthroplasty after she fell at [facility]. I spoke to patient's son Hank who provided me with background information: patient recently transitioned from [facility] to [place] one week ago. Hank thought "assisted" living meant more care/supervision, but patient was unsupervised when she fell. He realizes that she will now probably need rehab before returning to [facility], and he understands that she may never be able to return to [facility] given their level of care. He has a meeting with them tomorrow. PT/OT deja pending today. Hank will come by the hospital to speak with CM after his meeting with [facility]. He mentioned [facility] as a potential discharge plan and also mentioned that [facility] was NOT an option. Current discharge plan: TBD pending Pt/OT deja. Likely SNF rehab. Date Signed: 08/29/2017 10:04 AM Electronically Signed By:Yolanda Becerril RN [facility] CM Progress Note CM Note CM Note Notes: CM met w/ sonHank for dispo planning. He is MDPOA. PT/OT are recommending SNF. A list of SNF facilities provided to Hank. Hank would like a referrals to be made to [facility], [facility], [facility], [facility] and [facility]. Hank would prefer [facility] and [facility] due to the proximity to his house. All the SNFs have accepted pt. [facility] pending onsite to assess pt. CM notified Hank. Hank will be in tomorrow morning to let CM know which facility he wants to go w/. Hank has a meeting w/ [facility] this AM. Non triggering PASRR completed. CM to follow. Kimo #: [phone] Date Signed: 08/30/2017 03:36 PM Electronically Signed By:PO Baer [facility] CM Progress Note CM Note CM Note Notes: Pt medically stable for d/c to [facility], son #1 choice. GALINDO Alarcon to call report. Orders sent in [employer]. Stretcher transport scheduled for 1330. Pt son updated about d/c. Date Signed: 08/31/2017 02:22 PM Electronically Signed By:MIRA Hennessy Intervention Information
== END 2017-08-31 13:56 | DRG 470 ==
LOC: EDUNIT# → F3N 13:24
PROVIDERS: ADMIT Hospitalist; ATTEND Hospitalist
PROC: 0SRB0JZ Replacement of Left Hip Joint with Synthetic Substitute, Open Approach (ICD-10-PCS; principal; 2017-08-28 17:00)
DX: S72.002A Fracture of unspecified part of neck of left femur, initial encounter for closed fracture (principal); E87.1 Hypo-osmolality and hyponatremia; J90 Pleural effusion, not elsewhere classified; Z68.1 Body mass index [BMI] 19.9 or less, adult; D64.9 Anemia, unspecified; E03.9 Hypothyroidism, unspecified; R09.02 Hypoxemia; F03.90 Unspecified dementia, unspecified severity, without behavioral disturbance, psychotic disturbance, mood disturbance, and anxiety; R63.6 Underweight; W19.XXXA Unspecified fall, initial encounter; Y92.122 Bedroom in nursing home as the place of occurrence of the external cause; Z23 Encounter for immunization; Z66 Do not resuscitate
CPT/HCPCS: 92526-GN; 92610-GN; 97116-GP; 97163-GP; 97166-GO; 97535-GO; G0009; G8978-GP-CM; G8979-GP-CJ; G8987-GO-CL; G8988-GO-CJ; G8996-GN-CK; G8997-GN-CJ; J0330; J0690; J1650; J2405; J2704; J3010